=== PATIENT | male | born 1980 | race Caucasian/White ===

== ENCOUNTER 2020-01-22 09:37 | Emergency (ER) | payer OTHER ==
[~2020-01-22] VITALS: Ht 180.3 cm; Wt 95.3 kg
== END 2020-01-22 14:30 | disposition home or self-care (01) ==
LOC: ER 09:37
DX: T18.3XXA Foreign body in small intestine, initial encounter (principal); W45.8XXA Other foreign body or object entering through skin, initial encounter; Y93.89 Activity, other specified; Y92.89 Other specified places as the place of occurrence of the external cause; Y99.8 Other external cause status; R10.31 Right lower quadrant pain

== ENCOUNTER 2020-01-29 07:20 | Outpatient (CLI) | payer OTHER | END 2020-01-29 07:45 | disposition home or self-care (01) | LOC: TOM 07:20 | DX: R10.11 Right upper quadrant pain (principal) ==